=== PATIENT | female | born 2000 | race Caucasian/White ===

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

== ENCOUNTER 2019-01-27 15:23 | Emergency (ER) | payer BC, OTHER ==
[2019-01-27] MEDS ORDERED: Diazepam TAB(*) 5 MG PO ONE (18:27)
[2019-01-27] MEDS ORDERED: Ketorolac INJ* 30 MG/ML 1 ML VIAL IM ONE (20:09)
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
[2019-01-27 20:36] VITALS: BP 116/62
== END 2019-01-27 20:35 | disposition home or self-care (01) ==
LOC: ED 15:23
DX: Z88.0 Allergy status to penicillin (principal); J45.909 Unspecified asthma, uncomplicated; F41.9 Anxiety disorder, unspecified; M62.838 Other muscle spasm; V49.40XA Driver injured in collision with unspecified motor vehicles in traffic accident, initial encounter; Y92.410 Unspecified street and highway as the place of occurrence of the external cause
CPT/HCPCS: 72050; 72080; 96372; 99282; A9270-GY; J1885